=== PATIENT | female | born 1985 | race Two or more races ===

== ENCOUNTER 2018-02-15 11:35 | Outpatient (CLI) | payer BC ==
--- NOTE | 2018-02-15 15:12 | Diagnostic Imaging Report ---
Indication: Cough Technique: XRAY Chest 2v Comparison: None Findings: Heart size and mediastinal contours are within normal limits. There is no focal airspace consolidation, pleural effusion or pneumothorax. There is minimal scoliosis. Slight pectus suggested on lateral view. No acute osseous abnormality is seen. Lower abdominal shield in place. Impression: Clear lungs.
== END 2018-02-15 13:35 | disposition home or self-care (01) ==
LOC: RAD 11:35
DX: Z00.01 Encounter for general adult medical examination with abnormal findings (principal); R05 Cough
CPT/HCPCS: 71046